=== PATIENT | male | born 1945 | race Caucasian/White ===

== ENCOUNTER 2016-03-16 09:30 | Emergency (ER) | payer BC, MEDICARE ==
[2016-03-16] MEDS ORDERED: SUBLIMAZE 100 MCG/2 ML IV ONE ×2 (09:48→11:59)
--- NOTE | 2016-03-16 09:53 | ERPHSYRPT ---
- History of Present Illness Time Seen by Provider: 03/16/16 09:34 Source: patient, family () Physician History: CC: abd pain Hx: Patient of Dr Olivia London states he got up to go to [place] Wednesday AM. He passed out. He has had some neck pain since. He then had vomiting and diarrhea on Wednesday. Took 2 NTG Wednesday due to a little chest pain and he thought he was having a heart attack. His advised him to go to the hospital which he declined. He was better yesterday. Today has no V/D but has right lower abd pain. It is severe and limits his ability to move comfortably. No chest pain today. No fever or chills. Pain sharp and severe. Normal urination without hematuria. Severity: severe Allergies/Adverse Reactions: No Known Drug Allergies Allergy (Verified 03/16/16 09:52) Home Medications: Amlodipine Besylate 5 mg [Norvasc 5 mg] 5 mg PO DAILY 03/16/16 [History] Aspirin 81 gm Chew [Baby Aspirin 81 mg Chew] 81 mg PO DAILY 03/16/16 [ History] Hydrochlorothiazide 12.5 mg PO DAILY 03/16/16 [History] Metoprolol Tartrate [Lopressor] 12.5 mg PO DAILY 03/16/16 [History] Nitroglycerin 0.4 mg Tablet [Nitrostat 0.4 MG Tablet] 0.4 mg SL UD PRN 07/25 [History] Omeprazole 20 MG [Prilosec 20 mg] 20 mg PO BID 03/16/16 [History] Prasugrel HCl [Effient] 10 mg PO DAILY 03/16/16 [History] Simvastatin [Zocor] 20 mg PO HS 03/16/16 [History] Hx Influenza Vaccination/Date Given: Yes (2012) Hx Pneumococcal Vaccination/Date Given: No - Review of Systems Constitutional: Malaise, No Fever, No Chills Eyes: No Symptoms Ears, Nose, & Throat: No Symptoms Respiratory: No Cough, No Dyspnea Cardiac: Chest Pain (2 days ago), Syncope Abdominal/Gastrointestinal: Abdominal Pain (today), Vomiting, Diarrhea Genitourinary Symptoms: No Dysuria Musculoskeletal: Back Pain Skin: No Rash Neurological: No Dizziness, No Focal Weakness, No Headache, No Parasthesia All Other Systems: Reviewed and Negative - Past Medical History Pertinent Past Medical History: Yes Neurological History: Migraines ENT History: No Pertinent History Cardiac History: High Cholesterol Respiratory History: No Pertinent History Endocrine Medical History: No Pertinent History Musculoskeletal History: Osteoarthritis GI Medical History: GERD History: No Pertinent History Psycho-Social History: No Pertinent History Male Reproductive Disorders: No Pertinent History - Past Surgical History Past Surgical History: Yes Neuro Surgical History: No Pertinent History Cardiac: No Pertinent History Respiratory: No Pertinent History Gastrointestinal: No Pertinent History Genitourinary: No Pertinent History Musculoskeletal: Orthopedic Surgery Male Surgical History: No Pertinent History Other Surgical History: jaw surgery, finger surgery , right arm plates and fx . lasic sonido eyes - Social History Smoking Status: Never smoker Exposure to second hand smoke: No Drug Use: none Patient Lives Alone: No - Nursing Vital Signs Nursing Vital Signs: Initial Vital Signs Temperature 98.0 F Temperature Source Oral Pulse Rate 68 Respiratory Rate 14 Blood Pressure [Right Arm] 138/95 Pain Intensity 4 - Physical Exam General Appearance: alert Eye Exam: PERRL/EOMI Ears, Nose, Throat Exam: normal ENT inspection, moist mucous membranes Neck Exam: normal inspection, other (mild posterior tenderness moreso on paraspinous muscles) Respiratory Exam: normal breath sounds Cardiovascular Exam: regular rate/rhythm, No murmur Gastrointestinal/Abdomen Exam: soft, tenderness (mild RLQ), No mass, No guarding Male Genitalia Exam: normal genitalia Back Exam: normal inspection, No vertebral tenderness Extremity Exam: normal inspection, normal range of motion Neurologic Exam: alert, oriented x 3, cooperative, sensation nml, No motor deficits Skin Exam: warm, dry, No rash - Course Nursing assessment & vital signs reviewed: Yes EKG Interpreted by Me: RATE (68), Sinus Rhythm, NORMAL AXIS, NORMAL INTERVALS ( QTc 392), NORMAL QRS - CT Exams cervical CT Interpretation: Tele-radiologist Report, No Fracture abd/pelvis CT Interpretation: Negative, Tele-radiologist Report, Normal Appendix Ordered Tests: Active Orders 24 hr Category Date Time Status Clean Catch Urine Specimen STAT Care 03/16/16 09:48 Active EKG-ER Only STAT Care 03/16/16 09:48 Active IV Insertion STAT Care 03/16/16 09:48 Active NPO (ED) STAT Care 03/16/16 09:48 Active ABDOMEN AND PELVIS W CONTRAST [CT] Stat Exams 03/16/16 09:48 Completed CERVICAL SPINE WO CONTRAST [CT] Stat Exams 03/16/16 09:49 Completed CBC W DIFF Stat Lab 03/16/16 10:01 Completed CMP Stat Lab 03/16/16 10:01 Completed LIPASE Stat Lab 03/16/16 10:01 Completed Lactic Acid Urgent Lab 03/16/16 09:58 Completed TROPONIN Stat Lab 03/16/16 10:01 Completed UA Stat Lab 03/16/16 10:45 Completed Medication Summary Generic Name Dose Route Start Last Admin Trade Name Freq PRN Reason Stop Dose Admin Sodium Chloride 1,000 mls @ 100 mls/hr 03/16/16 10:00 03/16/16 10:08 Sodium Chloride 0.9% 1000 Ml IV 04/15/16 09:59 100 mls/hr .Q10H RAVIN Administration Discontinued Medications Generic Name Dose Route Start Last Admin Trade Name Freq PRN Reason Stop Dose Admin Fentanyl Citrate 50 mcg 03/16/16 09:48 03/16/16 10:07 Sublimaze 100 Mcg/2 Ml IV 03/16/16 09:49 50 mcg STAT ONE Administration Fentanyl Citrate Confirm 03/16/16 10:03 Sublimaze 100 Mcg/2 Ml Administered 03/16/16 10:04 Dose 100 mcg .ROUTE .STK-MED ONE Fentanyl Citrate 50 mcg 03/16/16 11:59 03/16/16 12:03 Sublimaze 100 Mcg/2 Ml IV 03/16/16 12:00 50 mcg STAT ONE Administration Fentanyl Citrate Confirm 03/16/16 12:01 Sublimaze 100 Mcg/2 Ml Administered 03/16/16 12:02 Dose 100 mcg .ROUTE .STK-MED ONE Sodium Chloride Confirm 03/16/16 10:04 Sodium Chloride 0.9% 1000 Ml Administered 03/16/16 10:05 Dose 1,000 mls @ ud .ROUTE .STK-MED ONE Lab/Rad Data: Laboratory Result Diagrams 03/16/16 10:01 03/16/16 10:01 Laboratory Results 03/16/16 03/16/16 03/16/16 Range/Units 10:45 10:01 10:01 WBC 8.1 (4.0-10.5) K/mm3 RBC 4.92 (4.1-5.6) M/mm3 Hgb 14.2 (12.5-18.0) gm/dl Hct 42.8 (42-50) % MCV 87.0 (78-100) fl MCH 28.9 (26-32) pg MCHC 33.2 (32-36) g/dl RDW 13.5 (11.5-14.0) % Plt Count 193 (150-450) K/mm3 MPV 10.3 H (6-9.5) fl Gran % 65.8 (36.0-66.0) % Lymphocytes % 15.1 L (24.0-44.0) % Monocytes % 15.3 H (0.0-12.0) % Eosinophils % 3.6 (0.00-5.0) % Basophils % 0.2 (0.0-0.4) % Basophils # 0.02 (0-0.4) Sodium 136 (136-145) mEq/L Potassium 3.6 (3.5-5.1) mEq/L Chloride 101 (98-107) mEq/L Carbon Dioxide 24.1 (21-32) mEq/L Anion Gap 14.5 (5-15) MEQ/L BUN 15 (9-20) mg/dL Creatinine 1.06 (0.55-1.30) mg/dl Estimated GFR > 60 ML/MIN Glucose 105 (70-110) MG/DL Lactic Acid (0.4-2.0) Calcium 8.4 L (8.5-10.1) mg/dL Total Bilirubin 0.3 (0.2-1.0) mg/dL AST 17 (15-37) U/L ALT 23 (12-78) U/L Alkaline Phosphatase 71 (46-116) U/L Troponin I < 0.017 (0.000-0.056) ng/ml Serum Total Protein 6.9 (6.4-8.2) gm/dL Albumin 3.5 (3.4-5.0) g/dL Lipase 107 (73-393) U/L Ur Collection Type CCMS Urine Color YELLOW (YELLOW) Urine Appearance CLEAR (CLEAR) Urine pH 7.0 (5-6) Ur Specific Davis 1.015 (1.005-1.025) Urine Protein NEGATIVE (Negative) Urine Glucose (UA) NEGATIVE (NEGATIVE) mg/dL Urine Ketones NEGATIVE (NEGATIVE) Urine Nitrite NEGATIVE (NEGATIVE) Urine Bilirubin NEGATIVE (NEGATIVE) Urine Urobilinogen >=8.0 (0-1) mg/dL Urine WBC (Auto) NEGATIVE (NEGATIVE) Urine RBC (Auto) NEGATIVE (0-5) Flako/ul Specimen Received 03/16/2016 1050 03/16/16 Range/Units 09:58 WBC (4.0-10.5) K/mm3 RBC (4.1-5.6) M/mm3 Hgb (12.5-18.0) gm/dl Hct (42-50) % MCV (78-100) fl MCH (26-32) pg MCHC (32-36) g/dl RDW (11.5-14.0) % Plt Count (150-450) K/mm3 MPV (6-9.5) fl Gran % (36.0-66.0) % Lymphocytes % (24.0-44.0) % Monocytes % (0.0-12.0) % Eosinophils % (0.00-5.0) % Basophils % (0.0-0.4) % Basophils # (0-0.4) Sodium (136-145) mEq/L Potassium (3.5-5.1) mEq/L Chloride (98-107) mEq/L Carbon Dioxide (21-32) mEq/L Anion Gap (5-15) MEQ/L BUN (9-20) mg/dL Creatinine (0.55-1.30) mg/dl Estimated GFR ML/MIN Glucose (70-110) MG/DL Lactic Acid 1.1 (0.4-2.0) Calcium (8.5-10.1) mg/dL Total Bilirubin (0.2-1.0) mg/dL AST (15-37) U/L ALT (12-78) U/L Alkaline Phosphatase (46-116) U/L Troponin I (0.000-0.056) ng/ml Serum Total Protein (6.4-8.2) gm/dL Albumin (3.4-5.0) g/dL Lipase (73-393) U/L Ur Collection Type Urine Color (YELLOW) Urine Appearance (CLEAR) Urine pH (5-6) Ur Specific Davis (1.005-1.025) Urine Protein (Negative) Urine Glucose (UA) (NEGATIVE) mg/dL Urine Ketones (NEGATIVE) Urine Nitrite (NEGATIVE) Urine Bilirubin (NEGATIVE) Urine Urobilinogen (0-1) mg/dL Urine WBC (Auto) (NEGATIVE) Urine RBC (Auto) (0-5) Flako/ul Specimen Received - Progress Progress Note: 03/16/16 12:55 The patient is stable. He is thirsty and drinking sprite. No abd tenderness on exam. He has been given fentanyl. Etiology of pain uncertain. No chest pain since 2 days ago. Spoke to Dr London and arranged follow up appt Wed 10:30. Will release with instr. Counseled pt/family regarding: lab results, diagnosis, need for follow-up, rad results - Departure Time of Disposition: 12:57 Departure Disposition: Home Clinical Impression: Abdominal pain, right lateral Syncope Qualifiers: Syncope type: unspecified Qualified Code(s): R55 - Syncope and collapse Condition: Stable Critical Care Time: No Referrals: EJ LONDON [Primary Care Provider] - Instructions: Abdominal Pain-Adult, Fainting Additional Instructions: [place] diet. No driving until follow up. See Dr Olivia London Wednesday this week at 10:30 AM. REturn for problems or concerns. Rx norco. Rx zofran. Prescriptions: Hydrocodone Bit/Acetaminophen [Portal 5-325 Tablet] 1 each PO Q6H PRN PRN #10 tablet PRN Reason: Pain Ondansetron [Zofran Odt] 4 mg PO Q6HPRN PRN #10 tab.rapdis PRN Reason: Nausea/Vomiting
[2016-03-16 10:00] LABS: BASOPHIL % 0.2 % (0.0-0.4); Eosinophil % 3.6 % (0.00-5.0); Granulocytes % 65.8 % (36.0-66.0); Lymphocytes % 15.1 % (24.0-44.0); Mean Corpuscular Hemoglobin 28.9 pg (26-32); Mean Platelet Volume 10.3 fl (6-9.5); Monocytes % 15.3 % (0.0-12.0); Platelet Count 193 K/mm3 (150-450); Red Blood Count 4.92 M/mm3 (4.1-5.6); Red Cell Distribution Width 13.5 % (11.5-14.0); White Blood Count 8.1 K/mm3 (4.0-10.5)
[2016-03-16] MEDS ORDERED: Sodium Chloride 0.9% 1000 ML 1,000 ML IV SCH (10:00)
[2016-03-16] MEDS ORDERED: SUBLIMAZE 100 MCG/2 ML ONE ×2 (10:03→12:01)
[2016-03-16] MEDS ORDERED: Sodium Chloride 0.9% 1000 ML 1,000 ML ONE (10:04)
[2016-03-16 10:51] LABS: ALBUMIN 3.5 g/dL (3.4-5.0); ALKALINE PHOSPHATASE 71 U/L (46-116); ANION GAP 14.5 MEQ/L (5-15); BILIRUBIN,TOTAL 0.3 mg/dL (0.2-1.0); BLOOD UREA NITROGEN 15 mg/dL (9-20); CHLORIDE 101 mEq/L (98-107); Carbon Dioxide 24.1 mEq/L (21-32); Glucose 105 MG/DL (70-110); LIPASE 107 U/L (73-393); Potassium 3.6 mEq/L (3.5-5.1); SGOT/AST 17 U/L (15-37); SGPT/ALT 23 U/L (12-78); SODIUM 136 mEq/L (136-145); Total Protein 6.9 gm/dL (6.4-8.2)
[2016-03-16 10:54] LABS: TROPONIN < 0.017 ng/ml (0.000-0.056)
[2016-03-16 11:02] LABS: COMPLETE URINE MICROSCOPIC? NO; Collection Type CCMS
--- NOTE | 2016-03-16 12:18 | XRAY ---
Indication: Neck pain following syncope. Multiple contiguous axial images obtained through the cervical spine. Sagittal and coronal reformatted images obtained. Comparison: None Axial images demonstrates deformity of the right C1 transverse foramen either developmental versus old injury. No acute fracture, suspicious bony lesions, or canal stenosis. Minimal C4-C5 endplate and bilateral uncal spurring. Facets are symmetric. Sagittal and coronal reformatted images demonstrates lordotic straightening, positional versus paraspinal muscular spasm. C4-C5 and C6-C7 disc space narrowing. No acute compression fracture, subluxation, or jumped facet. Normal-appearing craniocervical junction. Visualized noncontrasted soft tissues including base of the brain and lung apices are unremarkable. Incidental old bilateral mandible angle fractures. Impression: Lordotic straightening, positional versus paraspinal spasm. Otherwise nonacute CT cervical spine with chronic features as detailed. CT DI 112.70
--- NOTE | 2016-03-16 12:26 | XRAY ---
Indication: Right lower quadrant pain, vomiting, and diarrhea. Syncope. Multiple contiguous axial images obtained through the abdomen and pelvis using 80 cc Isovue 370 contrast only. Comparison: April 08, 2013 Lung bases again demonstrates bibasilar dependent atelectasis. Heart is not enlarged. Stable small hiatal hernia. Noncontrasted stomach and bowel loops appear nonobstructed. Again scattered descending and sigmoid diverticulosis smaller than before. Normal air-filled appendix. No free fluid/air. Stable calcified splenic granulomas, bilateral renal cysts, and a few small nonpathologic left mid abdominal small mesenteric nodes. Remaining liver, gallbladder, pancreas, spleen, adrenal glands, kidneys, ureters, and bladder appear unremarkable. Again mild aortoiliac calcifications. No AAA or pathologic retroperitoneal lymphadenopathy. Osseous structures intact again with minimal degenerative changes throughout the spine and bilateral L5 spondylolysis without spondylolisthesis. Impression: 1. No new or acute intra-abdominal/pelvic abnormalities. 2. Stable small hiatal hernia, colonic diverticulosis, bilateral renal cysts, small nonpathologic mesenteric nodes, and bilateral L5 spondylolysis without spondylolisthesis. CT DI 23.68
[2016-03-16 13:10] VITALS: BP 158/72; PULSE 97; O2SAT 98
== END 2016-03-16 13:10 | disposition home or self-care (01) ==
LOC: ED 09:30
DX: R55 Syncope and collapse (principal); R10.9 Unspecified abdominal pain; R11.10 Vomiting, unspecified; R19.7 Diarrhea, unspecified; E78.00 Pure hypercholesterolemia, unspecified
CPT/HCPCS: 36000; 36415; 72125; 74177; 80053; 81002; 83605; 83690; 84484; 85025; 93005; 96360; 96361; 96374; 96376; 99284; 99285; J3010

== ENCOUNTER 2017-04-16 05:47 | Day surgery (SDC) | payer BC, MEDICARE ==
[2017-04-16] MEDS ORDERED: DIPRIVAN 200 MG/20 ML IV ONE (05:48)
[2017-04-16] MEDS ORDERED: Versed 2 MG/2 ML Injection IV ONE (05:48)
[2017-04-16] MEDS ORDERED: Lactated Ringers 1,000 ML IV SCH (06:00)
[2017-04-16] MEDS ORDERED: Lactated Ringers 1,000 ML IV ONE (06:03)
--- NOTE | 2017-04-16 08:02 | OP ---
SURGERY DATE/TIME: 04/16/2017 0727 PREOPERATIVE DIAGNOSIS: Screening exam. POSTOPERATIVE DIAGNOSIS: Small polyps in the ascending colon, scattered sigmoid diverticula, internal hemorrhoids. PROCEDURE: Colonoscopy with biopsy. SURGEON: Dr. Awan. ANESTHESIA: MAC. Medications given by anesthesia department. HISTORY: The patient is a 72 year-old white male patient presenting now for screening colonoscopy. He said he had a previous colonoscopy ten to twelve years ago which was normal. The patient was appraised of the risks of the procedure including the risk of perforation, phlebitis, untoward reaction to medication, bleeding and missed lesions. The patient verbalized his understanding and desired to have the procedure performed. DESCRIPTION OF PROCEDURE: The patient was given the medications by the anesthesia department. He had continuous pulse oximetry, ECG monitoring, intermittent blood pressure monitoring and tidal CO2 monitoring during the examination. He was placed in the left lateral decubitus position. A digital rectal examination was performed and revealed normal anal sphincter tone and no masses and normal prostate. The flexible Olympus pediatric colonoscope was used to intubate the rectum. A view of the colon was developed sequentially to the cecum. Upon insertion and withdrawal, it was noted small polyps in the ascending colon and these were biopsied and destroyed using cold biopsy technique. Upon insertion and withdrawal was also noted scattered sigmoid diverticula and internal hemorrhoids. No other mucosal lesions being encountered, the scope was removed from the patient who tolerated the procedure well and was sent back to OP recovery in good condition. The prep was noted to be fair.
[2017-04-16 10:11] VITALS: O2SAT 96
[2017-04-16 10:12] VITALS: BP 110/71; PULSE 58
== END 2017-04-16 09:05 | disposition home or self-care (01) ==
LOC: SDC 05:47
PROVIDERS: ATTEND Family Medicine
PROC: 0DBK8ZX Excision of Ascending Colon, Via Natural or Artificial Opening Endoscopic, Diagnostic (ICD-10-PCS; principal; 2017-04-16)
DX: Z12.11 Encounter for screening for malignant neoplasm of colon (principal); K63.5 Polyp of colon; K57.30 Diverticulosis of large intestine without perforation or abscess without bleeding; K64.8 Other hemorrhoids; I25.10 Atherosclerotic heart disease of native coronary artery without angina pectoris; K21.9 Gastro-esophageal reflux disease without esophagitis
CPT/HCPCS: 88305; 99100; J2250; J2704

== ENCOUNTER 2017-06-05 10:30 | Observation (INO) | payer BC, MEDICARE ==
[2017-06-05] MEDS ORDERED: NITRO-BID 2% UD PACKETS TOP ONE (10:54)
[2017-06-05] MEDS ORDERED: BABY ASPIRIN 81 MG CHEW PO ONE (10:54)
[2017-06-05 11:02] LABS: BASOPHIL % 0.3 % (0.0-0.4); Basophil (Absolute #) 0.02 (0-0.4); Eosinophil % 3.5 % (0.00-5.0); Eosinophil (Absolute #) 0.22 (0-0.5); Granulocyte Absolute (ANC) 3.82 (1.4-6.9); Granulocytes % 60.8 % (36.0-66.0); Hematocrit 40.3 % (42-50); Hemoglobin 13.9 gm/dl (12.5-18.0); Lymphocytes % 22.3 % (24.0-44.0); Mean Corpuscular Hgb Concent. 34.5 g/dl (32-36); Mean Platelet Volume 9.6 fl (6-9.5); Monocyte (Absolute #) 0.82 (0.0-1.3); Monocytes % 13.1 % (0.0-12.0); Platelet Count 189 K/mm3 (150-450); Red Blood Count 4.63 M/mm3 (4.1-5.6); Red Cell Distribution Width 13.1 % (11.5-14.0); White Blood Count 6.3 K/mm3 (4.0-10.5)
--- NOTE | 2017-06-05 11:06 | ERPHSYRPT ---
- History of Present Illness Time Seen by Provider: 06/05/17 10:47 Historian: patient Exam Limitations: clinical condition Patient Subjective Stated Complaint: pt reports chest pain that started last evening while picking up sticks, pt reports going ahead with mowing his yard. states he woke up today with chest heaviness to the center chest. 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 Triage Nursing Assessment: pt is aox3, pt appears anxious, pt is shivering in bed, pupils perrl, pt is afebrile, radial pulses strong and equal, heart sounds strong and regular. cap refill < 3 seconds. no edema appreciated. pt is pain free after nitro and aspirin per home use. Physician History: PATIENT WITH A HISTORY OF HYPERTENSION, CORONARY ARTERY DISEASE, MYOCARDIAL INFARCTION IN 2014, COMPLAINS OF INTERMITTENT CHEST PAIN SUBSTERNAL PRESSURE DISCOMFORT SINCE YESTERDAY. TOOK 2 BABY ASPIRIN AND NITROGLYCERIN 0.4MG X 3 DOSES WITH ALMOST COMPLETE RELIEF. STATES INITIAL PAIN SCALE 8/10, NOW IMPROVED TO 1/10. STATES CHEST PAIN RADIATES TO HIS JAW, DENIES DIAPHORESIS, PALPITATIONS, OR DYSPNEA. Timing/Duration: yesterday Activities at Onset: activity Quality: pressure Location: substernal Chest Pain Radiation: jaw Severity of Pain-Max: moderate Severity of Pain-Current: mild Modifying Factors: Improves With: nitroglycerin Associated Symptoms: denies symptoms Prior Chest Pain/Cardiac Workup: no prior cardiac workup, cardiac cath Nitro Today/Relief: 0.4 mg x 3, provided at home Aspirin Treatment Today: 81 mg x 2, provided at home Allergies/Adverse Reactions: No Known Drug Allergies Allergy (Verified 06/05/17 10:44) Home Medications: Amlodipine Besylate 5 mg [Norvasc 5 mg] 5 mg PO DAILY 03/16/16 [History] Aspirin 81 gm Chew [Baby Aspirin 81 mg Chew] 2 tab PO DAILY 03/16/16 [ History] Metoprolol Tartrate [Lopressor] 12.5 mg PO DAILY 03/16/16 [History] Nitroglycerin 0.4 mg Tablet [Nitrostat 0.4 MG Tablet] 0.4 mg SL UD PRN 07/25 [History] Omeprazole 20 MG [Prilosec 20 mg] 20 mg PO DAILY 03/16/16 [History] Losartan Potassium [Cozaar] 100 mg PO DAILY 04/06/17 [History] Hx Tetanus, Diphtheria Vaccination/Date Given: Yes Hx Influenza Vaccination/Date Given: No Hx Pneumococcal Vaccination/Date Given: No Immunizations Up to Date: Yes - Review of Systems Constitutional: No Fever, No Chills Eyes: No Symptoms Ears, Nose, & Throat: No Symptoms, Throat Swelling Respiratory: No Cough, No Dyspnea Cardiac: Chest Pain, No Edema, No Syncope Abdominal/Gastrointestinal: No Symptoms, No Abdominal Pain, No Nausea, No Vomiting, No Diarrhea Genitourinary Symptoms: No Symptoms, No Dysuria Musculoskeletal: No Symptoms, No Back Pain, No Neck Pain Skin: No Rash Neurological: No Dizziness, No Focal Weakness, No Sensory Changes Psychological: No Symptoms Endocrine: No Symptoms All Other Systems: Reviewed and Negative - Past Medical History Pertinent Past Medical History: Yes Neurological History: Migraines ENT History: No Pertinent History Cardiac History: Angina, High Cholesterol, Hypertension, Myocardial Infarction ( [place]) Respiratory History: No Pertinent History Endocrine Medical History: No Pertinent History Musculoskeletal History: Osteoarthritis GI Medical History: GERD History: No Pertinent History Psycho-Social History: No Pertinent History Male Reproductive Disorders: No Pertinent History - Past Surgical History Past Surgical History: Yes Neuro Surgical History: No Pertinent History Cardiac: Cardiac Catheterization Respiratory: No Pertinent History Gastrointestinal: No Pertinent History Genitourinary: No Pertinent History Musculoskeletal: Orthopedic Surgery Male Surgical History: No Pertinent History Other Surgical History: jaw surgery, finger surgery , right arm plates and fx . lasic sonido eyes - Social History Smoking Status: Never smoker Exposure to second hand smoke: No Drug Use: none Patient Lives Alone: No - Nursing Vital Signs Nursing Vital Signs: Initial Vital Signs Temperature 97.9 F 06/05/17 10:37 Pulse Rate 72 06/05/17 10:37 Respiratory Rate 20 06/05/17 10:37 Blood Pressure 142/84 06/05/17 10:37 O2 Sat by Pulse Oximetry 99 06/05/17 10:37 Pain Scale Pain Intensity 0 - Physical Exam General Appearance: no apparent distress, alert Eye Exam: PERRL/EOMI, eyes nml inspection Ears, Nose, Throat Exam: normal ENT inspection, moist mucous membranes Neck Exam: normal inspection, non-tender, supple, full range of motion Respiratory Exam: normal breath sounds, lungs clear, No respiratory distress Cardiovascular Exam: regular rate/rhythm, normal heart sounds Gastrointestinal/Abdomen Exam: soft, normal bowel sounds, No tenderness, No mass Back Exam: normal inspection, No CVA tenderness, No vertebral tenderness Extremity Exam: normal inspection, normal range of motion Neurologic Exam: alert, oriented x 3, cooperative, normal mood/affect, sensation nml, No motor deficits Skin Exam: normal color, warm, dry SpO2 Interpretation: normal SpO2: 99 Oxygen Delivery: Room Air - Course EKG Interpreted by Me: RATE, Sinus Rhythm, NORMAL AXIS - Radiology Exams Chest X-ray Interpretation: Interpreted by me (LEFT INFRAHILAR ATELECTASIS,) Ordered Tests: Active Orders 24 hr Category Date Time Status Bedrest with BRP/BSC ROUTINE Activity 06/05/17 12:38 Ordered Call Admit Doctor for Orders ROUTINE Care 06/05/17 12:38 Ordered Nailing Machine Operator Automatic STAT Care 06/05/17 10:55 Active Code Status Order ROUTINE Care 06/05/17 12:38 Ordered EKG-ER Only STAT Care 06/05/17 10:54 Active IV Care Q6H Care 06/05/17 12:38 Ordered IV Insertion STAT Care 06/05/17 10:54 Active Implement Chest Pain Pathway ROUTINE Care 06/05/17 12:38 Ordered Oxygen-ED Only NASAL CANNULA 2 lpm Care 06/05/17 10:[address] in Observation ROUTINE Care 06/05/17 12:38 Ordered Ethan Hose, Apply ROUTINE Care 06/05/17 12:38 Ordered Telemetry ROUTINE Care 06/05/17 12:38 Ordered Vital Signs Q4H Care 06/05/17 12:38 Ordered Weight,Daily 0600 Care 06/05/17 12:38 Ordered Cardiac Diet Diet 06/05/17 Dinner Ordered CHEST 1 VIEW (PORTABLE) Stat Exams 06/05/17 10:55 Taken CBC W DIFF Stat Lab 06/05/17 10:50 Completed CMP Stat Lab 06/05/17 10:50 Completed LIPID PROFILE AM.LAB Lab 06/06/17 04:00 Ordered MAGNESIUM Stat Lab 06/05/17 10:50 Completed PROTIME WITH INR Stat Lab 06/05/17 10:50 Completed TROPONIN Q3H Lab 06/05/17 10:50 Completed TROPONIN Q3H Lab 06/05/17 14:00 Ordered TROPONIN Q3H Lab 06/05/17 17:00 Ordered TROPONIN Q3H Lab 06/05/17 20:00 Ordered TROPONIN Q3H Lab 06/05/17 23:00 Ordered EKG Q8HX2,QAMX3,PRN RT 06/05/17 12:38 Ordered Pulse Oximetry Q4H RT 06/05/17 12:38 Ordered Transfer Order Routine Transfer 06/05/17 Ordered Medication Summary Generic Name Dose Route Start Last Admin Trade Name Freq PRN Reason Stop Dose Admin Sodium Chloride 1,000 mls @ 50 mls/hr 06/05/17 11:00 06/05/17 11:09 Sodium Chloride 0.9% 1000 Ml IV 07/05/17 10:59 50 mls/hr .Q20H RAVIN Administration Discontinued Medications Generic Name Dose Route Start Last Admin Trade Name Freq PRN Reason Stop Dose Admin Aspirin 162 mg 06/05/17 10:54 06/05/17 11:09 Baby Aspirin 81 Mg Chew PO 06/05/17 10:55 162 mg STAT ONE Administration Aspirin Confirm 06/05/17 11:07 Baby Aspirin 81 Mg Chew Administered 06/05/17 11:08 Dose 162 mg .ROUTE .STK-MED ONE Nitroglycerin 1 gm 06/05/17 10:54 06/05/17 11:12 Nitro-Bid 2% Ud Packets TOP 06/05/17 10:55 1 gm STAT ONE Administration Nitroglycerin Confirm 06/05/17 11:07 Nitro-Bid 2% Ud Packets Administered 06/05/17 11:08 Dose 1 gm .ROUTE .STK-MED ONE Lab/Rad Data: Laboratory Result Diagrams 06/05/17 10:50 06/05/17 10:50 Laboratory Results 06/05/17 06/05/17 06/05/17 Range/Units 10:50 10:50 10:50 WBC (4.0-10.5) K/mm3 RBC (4.1-5.6) M/mm3 Hgb (12.5-18.0) gm/dl Hct (42-50) % MCV (78-100) fl MCH (26-32) pg MCHC (32-36) g/dl RDW (11.5-14.0) % Plt Count (150-450) K/mm3 MPV (6-9.5) fl Gran % (36.0-66.0) % Eos # (Auto) (0-0.5) Absolute Lymphs (auto) (1.0-4.6) Absolute Monos (auto) (0.0-1.3) Lymphocytes % (24.0-44.0) % Monocytes % (0.0-12.0) % Eosinophils % (0.00-5.0) % Basophils % (0.0-0.4) % Absolute Granulocytes (1.4-6.9) Basophils # (0-0.4) PT 11.8 (8.83-12.87) SECONDS INR 1.06 (0.8-3.0) Sodium 139 (137-145) mmol/L Potassium 4.1 (3.5-5.1) mmol/L Chloride 103 (98-107) mmol/L Carbon Dioxide 23 (22-30) mmol/L Anion Gap 16.7 H (5-15) MEQ/L BUN 17 (9-20) mg/dL Creatinine 1.09 (0.66-1.25) mg/dL Estimated GFR > 60.0 ML/MIN Glucose 132 H (74-106) mg/dL Calcium 9.5 (8.4-10.2) mg/dL Magnesium 1.7 (1.6-2.3) mg/dL Total Bilirubin 0.40 (0.2-1.3) mg/dL AST 25 (17-59) U/L ALT 26 (0-50) U/L Alkaline Phosphatase 85 (38-126) U/L Troponin I < 0.012 (0.000-0.034) ng/mL Serum Total Protein 7.2 (6.3-8.2) g/dL Albumin 4.2 (3.5-5.0) g/dL 06/05/17 Range/Units 10:50 WBC 6.3 (4.0-10.5) K/mm3 RBC 4.63 (4.1-5.6) M/mm3 Hgb 13.9 (12.5-18.0) gm/dl Hct 40.3 L (42-50) % MCV 87.0 (78-100) fl MCH 30.0 (26-32) pg MCHC 34.5 (32-36) g/dl RDW 13.1 (11.5-14.0) % Plt Count 189 (150-450) K/mm3 MPV 9.6 H (6-9.5) fl Gran % 60.8 (36.0-66.0) % Eos # (Auto) 0.22 (0-0.5) Absolute Lymphs (auto) 1.40 (1.0-4.6) Absolute Monos (auto) 0.82 (0.0-1.3) Lymphocytes % 22.3 L (24.0-44.0) % Monocytes % 13.1 H (0.0-12.0) % Eosinophils % 3.5 (0.00-5.0) % Basophils % 0.3 (0.0-0.4) % Absolute Granulocytes 3.82 (1.4-6.9) Basophils # 0.02 (0-0.4) PT (8.83-12.87) SECONDS INR (0.8-3.0) Sodium (137-145) mmol/L Potassium (3.5-5.1) mmol/L Chloride (98-107) mmol/L Carbon Dioxide (22-30) mmol/L Anion Gap (5-15) MEQ/L BUN (9-20) mg/dL Creatinine (0.66-1.25) mg/dL Estimated GFR ML/MIN Glucose (74-106) mg/dL Calcium (8.4-10.2) mg/dL Magnesium (1.6-2.3) mg/dL Total Bilirubin (0.2-1.3) mg/dL AST (17-59) U/L ALT (0-50) U/L Alkaline Phosphatase (38-126) U/L Troponin I (0.000-0.034) ng/mL Serum Total Protein (6.3-8.2) g/dL Albumin (3.5-5.0) g/dL - Progress Progress Note: 06/05/17 11:06 ADMINISTERED NITROPASTE 1"ANTERIOR CHEST WALL, BABY ASA X 2 ORALLY Discussed with DrDa: Bri (DISCUSSED WITH DR Gerry LONDON AT 1210 FOR OBSERVATION) - Departure Time of Disposition: 12:43 Departure Disposition: Observation Clinical Impression: ACUTE CHEST PAIN Condition: Stable Critical Care Time: No Referrals: EJ LONDON [Primary Care Provider] -
[2017-06-05] MEDS ORDERED: BABY ASPIRIN 81 MG CHEW ONE (11:07)
[2017-06-05] MEDS ORDERED: NITRO-BID 2% UD PACKETS ONE (11:07)
[2017-06-05] MEDS: Sodium Chloride 0.9% 1000 ML 1,000 ML IV SCH (11:09)
[2017-06-05 11:17] LABS: INR 1.06 (0.8-3.0)
[2017-06-05 11:22] LABS: ALBUMIN 4.2 g/dL (3.5-5.0); ALKALINE PHOSPHATASE 85 U/L (38-126); ANION GAP 16.7 MEQ/L (5-15); BLOOD UREA NITROGEN 17 mg/dL (9-20); CHLORIDE 103 mmol/L (98-107); Calcium 9.5 mg/dL (8.4-10.2); Carbon Dioxide 23 mmol/L (22-30); Creatinine 1 1.09 mg/dL (0.66-1.25); Glucose 132 mg/dL (74-106); Potassium 4.1 mmol/L (3.5-5.1); SGOT/AST 25 U/L (17-59); SGPT/ALT 26 U/L (0-50); SODIUM 139 mmol/L (137-145); Total Protein 7.2 g/dL (6.3-8.2)
[2017-06-05] MEDS ORDERED: TYLENOL 325 MG PO PRN (12:38)
[2017-06-05] MEDS ORDERED: Senokot-S Tablet PO PRN (12:38)
[2017-06-05] MEDS ORDERED: Zofran 4 MG/2 ML VIAL IV PRN (12:38)
[2017-06-05] MEDS ORDERED: MILK OF MAGNESIA 30 ML PO PRN (12:38)
[2017-06-05] MEDS ORDERED: MAALOX ES 30 ML UNIT DOSE PO PRN (12:38)
[2017-06-05] MEDS ORDERED: Sodium Chloride 0.9% 500 ML 500 ML IV SCH (12:45)
--- NOTE | 2017-06-05 17:21 | XRAY ---
Indication: Chest pain. Comparison: July 03, 2015. Portable chest underinflated today. Query subtle left base infiltrate versus atelectasis. Remaining heart and lungs unremarkable. Bony thorax intact again with distal right clavicle resection.
[2017-06-05] MEDS: NITRO-BID 2% UD PACKETS TOP SCH ×2 (17:50→22:20)
[2017-06-05] MEDS: Nitrostat 0.4 MG Tablet SL PRN (21:11)
[2017-06-05] MEDS: Pepcid 20 MG PO SCH (21:50)
[2017-06-05] MEDS ORDERED: ZOCOR 20MG PO SCH (22:00)
[2017-06-05] MEDS ORDERED: LIPITOR 40MG PO SCH (22:00)
[2017-06-05] MEDS ORDERED: ENOXAPARIN SODIUM SQ SCH (22:00)
[2017-06-06 05:39] LABS: BASOPHIL % 0.3 % (0.0-0.4); Basophil (Absolute #) 0.02 (0-0.4); Eosinophil % 3.6 % (0.00-5.0); Eosinophil (Absolute #) 0.22 (0-0.5); Granulocytes % 62.2 % (36.0-66.0); Hematocrit 38.2 % (42-50); Hemoglobin 13.1 gm/dl (12.5-18.0); Lymphocyte (Absolute #) 1.18 (1.0-4.6); Lymphocytes % 19.3 % (24.0-44.0); Mean Corpuscular Hemoglobin 29.8 pg (26-32); Mean Corpuscular Hgb Concent. 34.3 g/dl (32-36); Mean Platelet Volume 9.7 fl (6-9.5); Monocyte (Absolute #) 0.89 (0.0-1.3); Monocytes % 14.6 % (0.0-12.0); Platelet Count 153 K/mm3 (150-450); Red Blood Count 4.39 M/mm3 (4.1-5.6); White Blood Count 6.1 K/mm3 (4.0-10.5)
[2017-06-06 05:55] LABS: ALBUMIN 3.8 g/dL (3.5-5.0); ALKALINE PHOSPHATASE 67 U/L (38-126); ANION GAP 11.9 MEQ/L (5-15); BLOOD UREA NITROGEN 16 mg/dL (9-20); CHLORIDE 103 mmol/L (98-107); Calcium 9.2 mg/dL (8.4-10.2); Carbon Dioxide 26 mmol/L (22-30); Creatinine 1 0.95 mg/dL (0.66-1.25); Glucose 103 mg/dL (74-106); Potassium 3.9 mmol/L (3.5-5.1); SGOT/AST 23 U/L (17-59); SGPT/ALT 23 U/L (0-50); SODIUM 137 mmol/L (137-145); Total Protein 6.6 g/dL (6.3-8.2)
[2017-06-06 06:03] LABS: NT PRO BNP 207 pg/mL (0-900)
[2017-06-06] MEDS: NITRO-BID 2% UD PACKETS TOP SCH (06:26)
[2017-06-06 07:26] LABS: Risk Ratio 4.4
[2017-06-06 07:31] VITALS: O2SAT 97
[2017-06-06] MEDS: Sodium Chloride 0.9% 1000 ML 1,000 ML IV SCH (07:40)
[2017-06-06] MEDS: Nitrostat 0.4 MG Tablet SL PRN ×2 (07:43→08:46)
--- NOTE | 2017-06-06 08:41 | PCM.HP ---
History of Present Illness - Chief Complaint Chief Complaint: chest pain Date: 06/06/17 History of Present Illness: is a 72 year old male. who has history of NSTEMI in 2015 and was treated with cardiac cath but per patient no stent was able to be deployed. he follows with Dr. Barr and per patient has not had any chest pain since that event until 2 days ago he was picking up sticks and began having a pressure in his chest and heaviness. He sat down and this resolved and he mowed the yard then it began to progressively worsen with pressure anytime he would do any activity and he had his take him to the ED where he was given nitro and the pain was relieved. Since then he has been having it with any exertion just walking to the bathroom gets a severe pressure and heaviness on the chest and numbness and heaviness in the left arm. he is also having associated shortness of breath now. htis hsa actually worsened as the night has gone on and worse this am. The nitro past was givening him a headache and he did not have it replaced but a second dose of 0.4 mg sublingual nitro this am has taken the pain back to a /10 from a 08/17 - Review of Systems Constitutional: No Fever, No Chills Eyes: No Symptoms Ears, Nose, & Throat: No Symptoms Respiratory: Short Of Breath, No Cough, No Orthopnea, No Wheezing Cardiac: Chest Pain, No Edema, No Syncope Abdominal/Gastrointestinal: No Abdominal Pain, No Nausea, No Vomiting, No Diarrhea Genitourinary Symptoms: No Dysuria Musculoskeletal: No Back Pain, No Neck Pain Skin: No Rash Neurological: No Dizziness, No Focal Weakness, No Sensory Changes Psychological: No Symptoms Endocrine: No Symptoms Hematologic/Lymphatic: No Symptoms Immunological/Allergic: No Symptoms Medications & Allergies Home Medications: Home Medication List Amlodipine Besylate 5 mg [Norvasc 5 mg] 5 mg PO DAILY 03/16/16 [History Confirmed 06/05/17] Aspirin 81 gm Chew [Baby Aspirin 81 mg Chew] 2 tab PO DAILY 03/16/16 [ History Confirmed 06/05/17] Metoprolol Tartrate [Lopressor] 50 mg PO DAILY 03/16/16 [History Confirmed 06/05] Nitroglycerin 0.4 mg Tablet [Nitrostat 0.4 MG Tablet] 0.4 mg SL UD PRN 07/25 [History Confirmed 06/05/17] Losartan Potassium [Cozaar] 100 mg PO DAILY 04/06/17 [History Confirmed 06/05/17 ] Hydrochlorothiazide 25 mg [hydroDIURIL 25 MG] 12.5 mg PO DAILY 06/05/17 [ History Confirmed 06/05/17] Lansoprazole [Lansoprazole] 30 mg PO DAILY 06/05/17 [History Confirmed 06/05/17] Rosuvastatin Calcium [Crestor] 10 mg PO DAILY 06/05/17 [History Confirmed ] Allergies/Adverse Reactions: Allergies Allergy/AdvReac Type Severity Reaction Status Date / Time No Known Drug Allergies Allergy Verified 06/05/17 10:44 - Past Medical History Past Medical History: Yes Neurological History: Migraines ENT History: No Pertinent History Cardiac History: Angina, High Cholesterol, Hypertension, Myocardial Infarction ( [place]) Respiratory History: No Pertinent History Endocrine Medical History: No Pertinent History Musculoskelatal History: Osteoarthritis GI Medical History: GERD History: No Pertinent History Pyscho-Social History: No Pertinent History Male Reproductive Disorders: No Pertinent History - Past Surgical History Past Surgical History: Yes Neuro Surgical History: No Pertinent History Cardiac History: Cardiac Catheterization Respiratory Surgery: No Pertinent History GI Surgical History: No Pertinent History Genitourinary Surgical Hx: No Pertinent History Musculskeletal Surgical Hx: Orthopedic Surgery Male Surgical History: No Pertinent History Other Surgical History: jaw surgery, finger surgery , right arm plates and fx . lasic sonido eyes - Social History Smoking Status: Never smoker Exposure to second hand smoke: No Alcohol: None Drug Use: none - Physical Exam Vital Signs: Vital Signs - 24 hr Temp Pulse Pulse Resp BP BP Pulse Ox 06/06/17 07:28 96.8 F 70 20 158/81 97 06/06/17 04:00 98.1 F 68 20 132/72 98 06/06/17 00:00 97.7 F 62 18 121/67 94 L 06/05/17 21:11 62 126/82 06/05/17 20:00 98.3 F 57 L 18 106/59 96 06/05/17 13:29 98.1 F 60 20 122/62 96 06/05/17 13:07 98.1 F 60 20 122/62 96 06/05/17 12:41 99 06/05/17 12:38 60 16 107/69 97 06/05/17 11:50 64 18 122/76 98 06/05/17 11:18 64 22 122/79 99 06/05/17 10:37 97.9 F 72 72 20 142/84 99 Oxygen-Last 24 hours O2 Percentage 2 Liters = 28% O2 Percentage 2 Liters = 28% General Appearance: no apparent distress, alert Neurologic Exam: alert, oriented x 3, cooperative, normal mood/affect, nml cerebellar function, nml station & gait, sensation nml, No motor deficits Eye Exam: PERRL/EOMI, eyes nml inspection Ears, Nose, Throat Exam: normal ENT inspection, TMs normal, pharynx normal, moist mucous membranes Neck Exam: normal inspection, non-tender, supple, full range of motion Respiratory Exam: normal breath sounds, lungs clear, No respiratory distress Cardiovascular Exam: regular rate/rhythm, normal heart sounds, normal peripheral pulses Gastrointestinal/Abdomen Exam: soft, normal bowel sounds, No tenderness, No mass Back Exam: normal inspection, normal range of motion, No CVA tenderness, No vertebral tenderness Extremity Exam: normal inspection, normal range of motion, pelvis stable Skin Exam: normal color, warm, dry, No rash Lymphatic Exam: No adenopathy Results - Labs Lab/Micro Results: Lab Results-Last 24 Hours 06/05/17 06/05/17 06/05/17 Range/Units 13:55 17:00 18:35 WBC (4.0-10.5) K/mm3 RBC (4.1-5.6) M/mm3 Hgb (12.5-18.0) gm/dl Hct (42-50) % MCV (78-100) fl MCH (26-32) pg MCHC (32-36) g/dl RDW (11.5-14.0) % Plt Count (150-450) K/mm3 MPV (6-9.5) fl Gran % (36.0-66.0) % Eos # (Auto) (0-0.5) Absolute Lymphs (auto) (1.0-4.6) Absolute Monos (auto) (0.0-1.3) Lymphocytes % (24.0-44.0) % Monocytes % (0.0-12.0) % Eosinophils % (0.00-5.0) % Basophils % (0.0-0.4) % Absolute Granulocytes (1.4-6.9) Basophils # (0-0.4) D-Dimer (215-500) ng/mL Sodium (137-145) mmol/L Potassium (3.5-5.1) mmol/L Chloride (98-107) mmol/L Carbon Dioxide (22-30) mmol/L Anion Gap (5-15) MEQ/L BUN (9-20) mg/dL Creatinine (0.66-1.25) mg/dL Estimated GFR ML/MIN Glucose (74-106) mg/dL Calcium (8.4-10.2) mg/dL Total Bilirubin (0.2-1.3) mg/dL AST (17-59) U/L ALT (0-50) U/L Alkaline Phosphatase (38-126) U/L Troponin I < 0.012 < 0.012 0.013 (0.000-0.034) ng/mL NT-Pro-B Natriuret Pep (0-900) pg/mL Serum Total Protein (6.3-8.2) g/dL Albumin (3.5-5.0) g/dL Triglycerides (30-150) mg/dL Cholesterol (50-200) mg/dL LDL Cholesterol (30-100) mg/dL HDL Cholesterol (40-60) mg/dL Heart Disease Risk Ratio 06/05/17 06/05/17 06/05/17 Range/Units 21:00 23:10 23:10 WBC (4.0-10.5) K/mm3 RBC (4.1-5.6) M/mm3 Hgb (12.5-18.0) gm/dl Hct (42-50) % MCV (78-100) fl MCH (26-32) pg MCHC (32-36) g/dl RDW (11.5-14.0) % Plt Count (150-450) K/mm3 MPV (6-9.5) fl Gran % (36.0-66.0) % Eos # (Auto) (0-0.5) Absolute Lymphs (auto) (1.0-4.6) Absolute Monos (auto) (0.0-1.3) Lymphocytes % (24.0-44.0) % Monocytes % (0.0-12.0) % Eosinophils % (0.00-5.0) % Basophils % (0.0-0.4) % Absolute Granulocytes (1.4-6.9) Basophils # (0-0.4) D-Dimer 271.64 (215-500) ng/mL Sodium (137-145) mmol/L Potassium (3.5-5.1) mmol/L Chloride (98-107) mmol/L Carbon Dioxide (22-30) mmol/L Anion Gap (5-15) MEQ/L BUN (9-20) mg/dL Creatinine (0.66-1.25) mg/dL Estimated GFR ML/MIN Glucose (74-106) mg/dL Calcium (8.4-10.2) mg/dL Total Bilirubin (0.2-1.3) mg/dL AST (17-59) U/L ALT (0-50) U/L Alkaline Phosphatase (38-126) U/L Troponin I 0.013 < 0.012 (0.000-0.034) ng/mL NT-Pro-B Natriuret Pep (0-900) pg/mL Serum Total Protein (6.3-8.2) g/dL Albumin (3.5-5.0) g/dL Triglycerides (30-150) mg/dL Cholesterol (50-200) mg/dL LDL Cholesterol (30-100) mg/dL HDL Cholesterol (40-60) mg/dL Heart Disease Risk Ratio 06/06/17 06/06/17 06/06/17 Range/Units 05:20 05:20 05:20 WBC 6.1 (4.0-10.5) K/mm3 RBC 4.39 (4.1-5.6) M/mm3 Hgb 13.1 (12.5-18.0) gm/dl Hct 38.2 L (42-50) % MCV 87.0 (78-100) fl MCH 29.8 (26-32) pg MCHC 34.3 (32-36) g/dl RDW 13.0 (11.5-14.0) % Plt Count 153 (150-450) K/mm3 MPV 9.7 H (6-9.5) fl Gran % 62.2 (36.0-66.0) % Eos # (Auto) 0.22 (0-0.5) Absolute Lymphs (auto) 1.18 (1.0-4.6) Absolute Monos (auto) 0.89 (0.0-1.3) Lymphocytes % 19.3 L (24.0-44.0) % Monocytes % 14.6 H (0.0-12.0) % Eosinophils % 3.6 (0.00-5.0) % Basophils % 0.3 (0.0-0.4) % Absolute Granulocytes 3.80 (1.4-6.9) Basophils # 0.02 (0-0.4) D-Dimer (215-500) ng/mL Sodium 137 (137-145) mmol/L Potassium 3.9 (3.5-5.1) mmol/L Chloride 103 (98-107) mmol/L Carbon Dioxide 26 (22-30) mmol/L Anion Gap 11.9 (5-15) MEQ/L BUN 16 (9-20) mg/dL Creatinine 0.95 (0.66-1.25) mg/dL Estimated GFR > 60.0 ML/MIN Glucose 103 (74-106) mg/dL Calcium 9.2 (8.4-10.2) mg/dL Total Bilirubin 0.30 (0.2-1.3) mg/dL AST 23 (17-59) U/L ALT 23 (0-50) U/L Alkaline Phosphatase 67 (38-126) U/L Troponin I (0.000-0.034) ng/mL NT-Pro-B Natriuret Pep 207 (0-900) pg/mL Serum Total Protein 6.6 (6.3-8.2) g/dL Albumin 3.8 (3.5-5.0) g/dL Triglycerides 175 H (30-150) mg/dL Cholesterol 151 (50-200) mg/dL LDL Cholesterol 77 (30-100) mg/dL HDL Cholesterol 34 L (40-60) mg/dL Heart Disease Risk Ratio 4.4 06/06/17 Range/Units 05:20 WBC (4.0-10.5) K/mm3 RBC (4.1-5.6) M/mm3 Hgb (12.5-18.0) gm/dl Hct (42-50) % MCV (78-100) fl MCH (26-32) pg MCHC (32-36) g/dl RDW (11.5-14.0) % Plt Count (150-450) K/mm3 MPV (6-9.5) fl Gran % (36.0-66.0) % Eos # (Auto) (0-0.5) Absolute Lymphs (auto) (1.0-4.6) Absolute Monos (auto) (0.0-1.3) Lymphocytes % (24.0-44.0) % Monocytes % (0.0-12.0) % Eosinophils % (0.00-5.0) % Basophils % (0.0-0.4) % Absolute Granulocytes (1.4-6.9) Basophils # (0-0.4) D-Dimer (215-500) ng/mL Sodium (137-145) mmol/L Potassium (3.5-5.1) mmol/L Chloride (98-107) mmol/L Carbon Dioxide (22-30) mmol/L Anion Gap (5-15) MEQ/L BUN (9-20) mg/dL Creatinine (0.66-1.25) mg/dL Estimated GFR ML/MIN Glucose (74-106) mg/dL Calcium (8.4-10.2) mg/dL Total Bilirubin (0.2-1.3) mg/dL AST (17-59) U/L ALT (0-50) U/L Alkaline Phosphatase (38-126) U/L Troponin I < 0.012 (0.000-0.034) ng/mL NT-Pro-B Natriuret Pep (0-900) pg/mL Serum Total Protein (6.3-8.2) g/dL Albumin (3.5-5.0) g/dL Triglycerides (30-150) mg/dL Cholesterol (50-200) mg/dL LDL Cholesterol (30-100) mg/dL HDL Cholesterol (40-60) mg/dL Heart Disease Risk Ratio - Other Procedures and Tests Respiratory Therapy 06/05/17 21:21 EKG STAT 06/05/17 21:23 EKG STAT 06/07/17 05:00 EKG ONCE Assessment/Plan (1) Unstable angina Current Visit: Yes Status: Acute Assessment & Plan: his enzymes have remained negative and ekg remained unchanged with the tele showing sinus rhythm in the 50 to 70 range all night. He however is having progressively increasing symptoms very characteristic of angina and strong concern for progressively worsening unstable angina yesterday he was given aspirin on admission and nitro that helped the pain he did not want the nitro past replaced due to the headache but has required several doses of sublingual nitro that have relieved the pain last night he was given a therapeutic dose of 1 mg/kg of lovenox and atorvastatin 40 mg he is on metoprolol and losartan chronically his bp has been controlled Discussed case with Dr. Caden Schwartz covering for Dr. Barr his printing estimator who kindly accepts the patient to [facility] for further diagnostic and therapeutic evaluation of this unstable angina. The patient is in agreement with the transfer for cardiac services and availability of bottle labeler should he need that he is given 500 mg of renexa and repeat ekg is being obtained last was at 06:30 prior to discharge (2) Coronary arteriosclerosis Current Visit: Yes Status: Acute (3) Essential hypertension Current Visit: Yes Status: Acute Code(s): I10 - ESSENTIAL (PRIMARY) HYPERTENSION
[2017-06-06] MEDS ORDERED: Ranexa 500 MG PO ONE (08:54)
[2017-06-06] MEDS: Pepcid 20 MG PO SCH (08:58)
[2017-06-06] MEDS ORDERED: NORVASC 5 MG PO SCH (10:00)
[2017-06-06] MEDS ORDERED: BABY ASPIRIN 81 MG CHEW PO SCH (10:00)
[2017-06-06] MEDS ORDERED: Cozaar 50 MG PO SCH (10:00)
[2017-06-06] MEDS ORDERED: Toprol-Xl 25MG Tablets PO SCH (10:00)
[2017-06-06] MEDS ORDERED: ECOTRIN 81 MG PO SCH (10:00)
[2017-06-06] MEDS ORDERED: Ecotrin 325 MG PO SCH (10:00)
[2017-06-06] MEDS ORDERED: hydroDIURIL 25 MG PO SCH (10:00)
[2017-06-06] MEDS ORDERED: Protonix 40MG Tablet PO SCH (10:00)
[2017-06-06 12:06] VITALS: BP 139/86; PULSE 69
[2017-06-06] MEDS ORDERED: ZOCOR 20MG PO SCH (22:00)
[2017-06-06] MEDS ORDERED: ENOXAPARIN SODIUM SQ SCH (22:00)
== END 2017-06-06 12:13 | disposition short-term general hospital (02) ==
LOC: ED 10:30 → MED SURG 12:55
PROVIDERS: ADMIT Family Medicine; ATTEND Family Medicine
DX: I20.0 Unstable angina (principal); I25.10 Atherosclerotic heart disease of native coronary artery without angina pectoris; I10 Essential (primary) hypertension
CPT/HCPCS: 36000; 36415; 71045; 80053; 80061; 83721; 83735; 83880; 84484; 85025; 85379; 85610; 93005; 93041; 93268; 96360; 99284; 99285; J1650; A9270-GY; G0378

== ENCOUNTER 2020-09-11 06:00 | Emergency (ER) | payer BC, MEDICARE ==
--- NOTE | 2020-09-11 06:52 | ERPHSYRPT ---
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 The patient was brought to [facility] ED by a coworker. Triage Nursing Assessment: The patient is alert and oriented, ambulatory. The patient is shaking and short of breath. As this nurse was was entering the room, the patient began vomiting. Physician History: Patient is a 75-year-old male presents to our ED for evaluation of shaking, chills and shortness of breath. 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 At approximately 4:40 AM patient began experiencing symptoms. Upon arrival to our ED patient was shaking hysterically. He complained of shortness of breath. Patient vomited. No chest pain. Patient states his body feels achy all over. Upon my evaluation symptoms had significantly improved. Patient was calm conversant well-appearing and in no acute distress. Symptoms are mild to moderate in intensity. No specific worsening or improving factors. Patient believes that this may have been potentially due to stress. Patient's last month. Patient has a cardiac history. 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 Patient has been taking all medications as prescribed. Patient is now comfortable. He voices no other complaints or concerns at this time. Severity: moderate Modifying Factors: Improves With: nothing Associated Symptoms: nausea, vomiting, shortness of breath, chills, other (Body aches) Allergies/Adverse Reactions: No Known Drug Allergies Allergy (Verified 09/11/20 06:32) Home Medications: Amlodipine Besylate 5 mg [Norvasc 5 mg] 5 mg PO DAILY 03/16/16 [History] Aspirin 81 gm Chew [Baby Aspirin 81 mg Chew] 1 tab PO DAILY 03/16/16 [H istory] Metoprolol Tartrate [Lopressor] 50 mg PO DAILY 03/16/16 [History] Nitroglycerin 0.4 mg Tablet [Nitrostat 0.4 MG Tablet] 0.4 mg SL UD PRN 03/16/16 [History] Hydrochlorothiazide 25 mg [hydroDIURIL 25 MG] 12.5 mg PO DAILY 06/05/17 [History] Lansoprazole 30 mg PO DAILY 06/05/17 [History] Rosuvastatin Calcium [Crestor] 10 mg PO DAILY 06/05/17 [History] Hx Tetanus, Diphtheria Vaccination/Date Given: Yes Hx Influenza Vaccination/Date Given: No Hx Pneumococcal Vaccination/Date Given: Yes Immunizations Up to Date: Yes Travel Risk - International Travel Have you traveled outside of the country in past 3 weeks: No - Coronavirus Screening Are you exhibiting any of the following symptoms?: Yes Symptoms: Shortness of Breath, Vomiting/Diarrhea, Headaches/Body Aches/Fatigue Close contact with a COVID-19 positive Pt in past 14-21 Days: No - Vaccine Status Have you recieved a Covid-19 vaccination: Yes [employer]: Moderna - Vaccination Dates Date of 2cond Vaccination (if applicable): 03/16/20 - Review of Systems Constitutional: No Symptoms, No Fever, No Chills Eyes: No Symptoms Ears, Nose, & Throat: No Symptoms Respiratory: No Symptoms, No Cough, No Dyspnea Cardiac: No Symptoms, No Chest Pain, No Edema, No Syncope Abdominal/Gastrointestinal: No Symptoms, No Abdominal Pain, No Nausea, No Vomiting, No Diarrhea Genitourinary Symptoms: No Symptoms, No Dysuria Musculoskeletal: No Symptoms, No Back Pain, No Neck Pain Skin: No Symptoms, No Rash Neurological: No Symptoms, No Dizziness, No Focal Weakness, No Sensory Changes Psychological: No Symptoms Endocrine: No Symptoms Hematologic/Lymphatic: No Symptoms Immunological/Allergic: No Symptoms All Other Systems: Reviewed and Negative - Past Medical History Pertinent Past Medical History: Yes Neurological History: Migraines ENT History: No Pertinent History Cardiac History: Angina, High Cholesterol, Hypertension, Myocardial Infarction ([place]) Respiratory History: No Pertinent History Endocrine Medical History: No Pertinent History Musculoskeletal History: Osteoarthritis GI Medical History: GERD History: No Pertinent History Psycho-Social History: No Pertinent History Male Reproductive Disorders: No Pertinent History - Past Surgical History Past Surgical History: Yes Neuro Surgical History: No Pertinent History Cardiac: Cardiac Catheterization Respiratory: No Pertinent History Gastrointestinal: No Pertinent History Genitourinary: No Pertinent History Musculoskeletal: Orthopedic Surgery Male Surgical History: No Pertinent History Other Surgical History: jaw surgery, finger surgery , right arm plates and fx . lasic sonido eyes, quadruple bypass in June 2017 - Social History Smoking Status: Never smoker Exposure to second hand smoke: No Drug Use: none Patient Lives Alone: Yes - Nursing Vital Signs Nursing Vital Signs: Initial Vital Signs Temperature 99 F 09/11/20 06:01 Pulse Rate 112 H 09/11/20 06:01 Respiratory Rate 22 09/11/20 06:01 Blood Pressure 123/89 09/11/20 06:01 O2 Sat by Pulse Oximetry 95 09/11/20 06:01 Pain Scale Pain Intensity 4 - Physical Exam General Appearance: no apparent distress, alert Eye Exam: PERRL/EOMI, eyes nml inspection Ears, Nose, Throat Exam: normal ENT inspection, TMs normal, pharynx normal, moist mucous membranes Neck Exam: normal inspection, non-tender, supple, full range of motion Respiratory Exam: normal breath sounds, lungs clear, No respiratory distress Cardiovascular Exam: regular rate/rhythm, normal heart sounds, normal peripheral pulses Gastrointestinal/Abdomen Exam: soft, normal bowel sounds, No tenderness, No mass Back Exam: normal inspection, normal range of motion, No CVA tenderness, No vertebral tenderness Extremity Exam: normal inspection, normal range of motion, pelvis stable, other (2+ pitting edema bilateral lower extremity.) Neurologic Exam: alert, oriented x 3, cooperative, normal mood/affect, sensation nml, No motor deficits Skin Exam: normal color, warm, dry, No rash Lymphatic Exam: No adenopathy SpO2 Interpretation: normal SpO2: 97 O2 Delivery: Room Air - Course Nursing assessment & vital signs reviewed: Yes EKG Interpreted by Me: RATE (102), Sinus Rhythm, NORMAL AXIS, NORMAL INTERVALS Ordered Tests: Active Orders 24 hr Category Date Time Status Organizational Effectiveness Director STAT Care 09/11/20 06:45 Active EKG-ER Only STAT Care 09/11/20 06:44 Active IV Insertion STAT Care 09/11/20 06:44 Active Pulse Oximetry (ED) STAT Care 09/11/20 06:44 Active CHEST 1 VIEW (PORTABLE) Stat Exams 09/11/20 07:01 Taken CBC W DIFF Stat Lab 09/11/20 06:30 Completed CK (IN-HOUSE) [CK-Creatinine Phosphokinase] Stat Lab 09/11/20 07:15 Ordered CMP Stat Lab 09/11/20 06:30 Received D-DIMER QUANTITATIVE Stat Lab 09/11/20 06:30 Received INFLUENZA A+B DARYL Routine Lab 09/11/20 07:13 Received NT PRO BNP Stat Lab 09/11/20 06:30 Received TROPONIN Q3H Lab 09/11/20 06:30 Received TROPONIN Q3H Lab 09/11/20 09:45 Ordered TROPONIN Q3H Lab 09/11/20 12:45 Ordered TROPONIN Q3H Lab 09/11/20 15:45 Ordered TROPONIN Q3H Lab 09/11/20 18:45 Ordered UA W/RFX UR CULTURE Stat Lab 09/11/20 07:10 Ordered Lab/Rad Data: Laboratory Result Diagrams 09/11/20 06:30 09/11/20 06:30 Laboratory Results 09/11/20 09/11/20 09/11/20 Range/Units 07:10 06:30 06:30 WBC (4.0-10.5) K/mm3 RBC (4.1-5.6) M/mm3 Hgb (12.5-18.0) gm/dl Hct (42-50) % MCV (78-100) fl MCH (26-32) pg MCHC (32-36) g/dl RDW (11.5-14.0) % Plt Count (150-450) K/mm3 MPV (7.5-11.0) fl Gran % (36.0-66.0) % Eos # (Auto) (0-0.5) Absolute Lymphs (auto) (1.0-4.6) Absolute Monos (auto) (0.0-1.3) Lymphocytes % (24.0-44.0) % Monocytes % (0.0-12.0) % Eosinophils % (0.00-5.0) % Basophils % (0.0-0.4) % Absolute Granulocytes (1.4-6.9) Basophils # (0-0.4) D-Dimer 2598 H* (215-500) ng/mL Sodium (137-145) mmol/L Potassium (3.5-5.1) mmol/L Chloride (98-107) mmol/L Carbon Dioxide (22-30) mmol/L Anion Gap (5-15) MEQ/L BUN (9-20) mg/dL Creatinine (0.66-1.25) mg/dL Estimated GFR ML/MIN Glucose (74-106) mg/dL Calcium (8.4-10.2) mg/dL Total Bilirubin (0.2-1.3) mg/dL AST (17-59) U/L ALT (0-50) U/L Alkaline Phosphatase (38-126) U/L Troponin I < 0.012 (0.000-0.034) ng/mL NT-Pro-B Natriuret Pep (0-900) pg/mL Serum Total Protein (6.3-8.2) g/dL Albumin (3.5-5.0) g/dL Urine Color YELLOW (YELLOW) Urine Appearance CLEAR (CLEAR) Urine pH 6.0 (5-6) Ur Specific Rick[place]all 1.018 (1.005-1.025) Urine Protein NEGATIVE (Negative) Urine Ketones NEGATIVE (NEGATIVE) Urine Blood NEGATIVE (0-5) Flako/ul Urine Nitrite NEGATIVE (NEGATIVE) Urine Bilirubin NEGATIVE (NEGATIVE) Urine Urobilinogen NEGATIVE (0-1) mg/dL Ur Leukocyte Esterase NEGATIVE (NEGATIVE) Urine WBC (Auto) NONE (0-5) /HPF Urine RBC (Auto) NONE (0-2) /HPF U Epithel Cells (Auto) NONE (FEW) /HPF Urine Bacteria (Auto) NONE (NEGATIVE) /HPF Urine Culture Reflexed NO (NO) Urine Glucose NEGATIVE (NEGATIVE) mg/dL 09/11/20 09/11/20 Range/Units 06:30 06:30 WBC 5.6 (4.0-10.5) K/mm3 RBC 4.19 (4.1-5.6) M/mm3 Hgb 12.6 (12.5-18.0) gm/dl Hct 38.0 L (42-50) % MCV 90.7 (78-100) fl MCH 30.1 (26-32) pg MCHC 33.2 (32-36) g/dl RDW 13.5 (11.5-14.0) % Plt Count 128 L (150-450) K/mm3 MPV 10.2 (7.5-11.0) fl Gran % 83.8 H (36.0-66.0) % Eos # (Auto) 0.30 (0-0.5) Absolute Lymphs (auto) 0.45 L (1.0-4.6) Absolute Monos (auto) 0.13 (0.0-1.3) Lymphocytes % 8.1 L (24.0-44.0) % Monocytes % 2.3 (0.0-12.0) % Eosinophils % 5.4 H (0.00-5.0) % Basophils % 0.4 (0.0-0.4) % Absolute Granulocytes 4.66 (1.4-6.9) Basophils # 0.02 (0-0.4) D-Dimer (215-500) ng/mL Sodium 139 (137-145) mmol/L Potassium 3.8 (3.5-5.1) mmol/L Chloride 101 (98-107) mmol/L Carbon Dioxide 26 (22-30) mmol/L Anion Gap 15.0 (5-15) MEQ/L BUN 18 (9-20) mg/dL Creatinine 1.12 (0.66-1.25) mg/dL Estimated GFR > 60.0 ML/MIN Glucose 112 H (74-106) mg/dL Calcium 9.5 (8.4-10.2) mg/dL Total Bilirubin 0.30 (0.2-1.3) mg/dL AST 35 (17-59) U/L ALT 23 (0-50) U/L Alkaline Phosphatase 82 (38-126) U/L Troponin I (0.000-0.034) ng/mL NT-Pro-B Natriuret Pep 154 (0-900) pg/mL Serum Total Protein 6.8 (6.3-8.2) g/dL Albumin 4.2 (3.5-5.0) g/dL Urine Color (YELLOW) Urine Appearance (CLEAR) Urine pH (5-6) Ur Specific [place]all (1.005-1.025) Urine Protein (Negative) Urine Ketones (NEGATIVE) Urine Blood (0-5) Flako/ul Urine Nitrite (NEGATIVE) Urine Bilirubin (NEGATIVE) Urine Urobilinogen (0-1) mg/dL Ur Leukocyte Esterase (NEGATIVE) Urine WBC (Auto) (0-5) /HPF Urine RBC (Auto) (0-2) /HPF U Epithel Cells (Auto) (FEW) /HPF Urine Bacteria (Auto) (NEGATIVE) /HPF Urine Culture Reflexed (NO) Urine Glucose (NEGATIVE) mg/dL - Progress Progress: improved Progress Note: Patient reassessed. He is now resting comfortably. Shaking has resolved. Patient still has residual myalgias. No chest pain no shortness of breath. Covid test and influenza ordered results pending. Labs pending Patient endorsed to Dr. Maria at approximately 7 AM for final disposition. 09/11/20 07:13 - Departure Clinical Impression: Myalgia Condition: Stable Critical Care Time: No Referrals: JASPAL FAM MD [Primary Care Provider] -
[2020-09-11 07:00] LABS: Absolute Neutrophil Ct (ANC) 4.66 (1.4-6.9); BASOPHIL % 0.4 % (0.0-0.4); Basophil (Absolute #) 0.02 (0-0.4); Eosinophil % 5.4 % (0.00-5.0); Hemoglobin 12.6 gm/dl (12.5-18.0); Lymphocyte (Absolute #) 0.45 (1.0-4.6); Lymphocytes % 8.1 % (24.0-44.0); Mean Cell Volume 90.7 fl (78-100); Mean Corpuscular Hemoglobin 30.1 pg (26-32); Mean Corpuscular Hgb Concent. 33.2 g/dl (32-36); Mean Platelet Volume 10.2 fl (7.5-11.0); Monocyte (Absolute #) 0.13 (0.0-1.3); Monocytes % 2.3 % (0.0-12.0); Neutrophil % 83.8 % (36.0-66.0); Platelet Count 128 K/mm3 (150-450); Red Blood Count 4.19 M/mm3 (4.1-5.6); Red Cell Distribution Width 13.5 % (11.5-14.0); White Blood Count 5.6 K/mm3 (4.0-10.5)
[2020-09-11 07:13] LABS: Appearance CLEAR (CLEAR); Bilirubin NEGATIVE (NEGATIVE); Blood NEGATIVE Ery/ul (0-5); Glucose NEGATIVE (NEGATIVE); Ketones NEGATIVE (NEGATIVE); Leukocyte Esterase NEGATIVE (NEGATIVE); Nitrite NEGATIVE (NEGATIVE); Protein,Urine Dip NEGATIVE (Negative); Specific Gravity 1.018 (1.005-1.025); Urobilinogen NEGATIVE mg/dL (0-1)
[2020-09-11 07:22] LABS: ALBUMIN 4.2 g/dL (3.5-5.0); ALKALINE PHOSPHATASE 82 U/L (38-126); BLOOD UREA NITROGEN 18 mg/dL (9-20); CHLORIDE 101 mmol/L (98-107); Calcium 9.5 mg/dL (8.4-10.2); Carbon Dioxide 26 mmol/L (22-30); Creatinine 1 1.12 mg/dL (0.66-1.25); EST GLOMERULAR FILTRATION RATE > 60.0 ML/MIN; Glucose 112 mg/dL (74-106); NT PRO BNP 154 pg/mL (0-900); Potassium 3.8 mmol/L (3.5-5.1); SGOT/AST 35 U/L (17-59); SGPT/ALT 23 U/L (0-50); SODIUM 139 mmol/L (137-145); Total Protein 6.8 g/dL (6.3-8.2)
[2020-09-11 07:46] LABS: INFLUENZA A NEGATIVE (NEGATIVE); INFLUENZA B NEGATIVE (NEGATIVE)
[2020-09-11 08:10] VITALS: O2SAT 98
--- NOTE | 2020-09-11 08:59 | XRAY ---
Exam: CT of the chest with IV contrast per PE protocol from 09/11/2020. CTDI: 15.27 mGy Comparison: AP upright portable chest film from 09/11/2020. Indication: Elevated d-dimer of 2598; elevated blood pressure; shaking, history of open heart surgery in 2018. Technique: Post-IV contrast axial images were obtained through the chest during automated injection of 100 cc of Isovue-370 contrast material using the PE protocol. Reconstructed coronal and sagittal images were created and reviewed. Findings: I see no filling defects within the main pulmonary artery segment, right or left main pulmonary arteries, or proximal branching intra-lobar arteries. Assessment of the distal pulmonary arterial branches is limited. I see no evidence of thoracic aortic dissection or aneurysm. Mild atherosclerotic vascular calcification is seen within the thoracic aorta. The heart size appears within normal limits. Coronary artery vascular calcification and changes consistent with prior CABG and midline sternotomy are noted. There is no pericardial effusion. I note a couple granulomatous calcifications in the subcarinal projection extending toward the right of midline. No abnormal mediastinal/perihilar lymphadenopathy is seen. No abnormal axillary lymphadenopathy is seen. I believe there is a small hiatal hernia present. I note some minor posterior compression atelectatic changes. No air space infiltrates or groundglass opacities are seen. There is no pneumothorax or pleural effusion. There is minimal pleural reaction within the major fissures of each lung. No abnormal soft tissue lung nodularity is seen. The visualized upper abdomen reveals multiple small calcified splenic granulomas. Vascular calcification is seen within the splenic artery. I cannot exclude a 9 mm calcified splenic artery aneurysm on axial image #244 of series 2. The adrenal glands appear unremarkable. There is an old ununited fracture of the middle third of the right clavicle. I see no acute fracture or aggressive bone lesion. Impression: 1. I see no definite clot within the main pulmonary artery trunk, right or left main pulmonary, or proximal branching intralobar arteries. Some of the distal pulmonary arterial branches are difficult to assess due to poor contrast and CT noise. No gross abnormality is seen. 2. No pulmonary infiltrates or other evidence of acute pulmonary disease is seen. 3. Small hiatal hernia, central old healed granulomatous disease, evidence of prior CABG, and an old ununited mid right clavicle fracture are seen.
[2020-09-11 09:05] VITALS: BP 115/64; PULSE 103
[2020-09-11 13:15] LABS: Slide Review 1 YES
--- NOTE | 2020-09-11 23:05 | XRAY ---
Exam: AP upright portable chest film from 09/11/2020. Comparison: Two-view chest from 08/24/2018. Indication: Shortness of breath; history of CABG in 2018. Findings: The transverse heart size is normal. Surgical clips overlie the left side of the mediastinum. There are also midline sternal wires. This is consistent with prior CABG. Vascular calcification within the aortic arch and mild tortuosity of the descending thoracic aorta are seen. There is average inflation of the lungs. There is mild elevation/eventration of the right hemidiaphragm with respect to the left hemidiaphragm. No air space infiltrates, vascular congestion, pneumothorax, or pleural fluid is seen. An old healed, ununited, displaced fracture of the middle third of the right clavicle is again seen. No acute osseous process is seen. Impression: 1. Status post CABG without evidence of acute cardiopulmonary disease. 2. Mild elevation/eventration of the right hemidiaphragm. 3. Old ununited displaced fracture of the middle third of the right clavicle.
== END 2020-09-11 09:22 | disposition home or self-care (01) ==
LOC: ED 06:00
DX: M79.10 Myalgia, unspecified site (principal); Z79.899 Other long term (current) drug therapy; I10 Essential (primary) hypertension; I25.2 Old myocardial infarction; E78.00 Pure hypercholesterolemia, unspecified
CPT/HCPCS: 36000; 36415; 71045; 71260; 80053; 81001; 82550; 83880; 84484; 85025; 85379; 87400; 93005; 93041; 94760; 99284; U0003

== ENCOUNTER 2024-04-26 05:54 | Day surgery (SDC) | payer MEDICARE ==
[2024-04-26] MEDS: Lactated Ringers 1,000 ML IV SCH (06:18)
[2024-04-26 06:49] LABS: Creatinine 1 0.99 mg/dL (0.66-1.25); EST GLOMERULAR FILTRATION RATE 78.5 ML/MIN; Potassium 3.4 mmol/L (3.5-5.1)
[2024-04-26] MEDS ORDERED: propofoL IV ONE ×3 (07:13→07:56)
[2024-04-26] MEDS ORDERED: Ephedrine Sulfate 50 MG/ML ONE (07:29)
[2024-04-26 08:32] VITALS: RESP 16; TEMP 97; O2SAT 98
[2024-04-26 08:38] VITALS: BP 113/54; PULSE 72
--- NOTE | 2024-04-27 12:12 | OP ---
SURGERY DATE/TIME: 04/26/2024 [id number] PROCEDURE PERFORMED: Colonoscopy. PREOPERATIVE DIAGNOSES: 1) Screening colonoscopy. 2) History of colon polyps. POSTOPERATIVE DIAGNOSIS: Multiple colon polyps. ANESTHESIA: MAC by Tyron Tiwari CRNA SURGEON: Tanner Thomas MD ESTIMATED BLOOD LOSS: Minimal. SPECIMENS: Hot forceps polypectomy x4 and hot snare polypectomy x1. DESCRIPTION OF PROCEDURE: After informed written consent was obtained, the patient was taken to the endoscopy suite. He underwent monitored anesthesia, and digital rectal exam showed normal sphincter tone and no internal lesions. The scope was inserted into the rectum and sequentially the entire colonic mucosa was traversed. The level of the cecum was reached and verified with direct visualization of the ileocecal valve. Upon withdrawal, there was immediately a polyp in the cecum which was grasped with forceps, cauterized, removed in its entirety and sent to Pathology. Upon further withdrawal, another polyp was encountered in the proximal transverse colon which was likewise removed with the hot forceps. In the descending colon, there was another small sessile polyp, again grasped with the forceps, cauterized and removed in its entirety. Upon further withdrawal into the sigmoid colon at the 25 cm scope level depth, there was a broad-based indistinct friable polypoid lesion which encompassed approximately 40% of the colon lumen. I was unable to get a snare around it as it was situated between 2 folds and I could not get around the base of it. Therefore, multiple hot forceps biopsies were taken to sample the lesion and to destroy as much of it as possible. There was still polypoid mucosal tissue present there following removal, but it seemed to be rather hemostatic, but again it was friable and bled easily. Approximately 4 cm distal to that, there was another fairly large pedunculated polyp which I placed a snare around, and it was retrieved and sent for pathology testing. There seemed to be some polypoid tissue still present at the base. Therefore, forceps was used to remove that tissue and appeared to be satisfactory. Distal to that, there were no lesions and no mucosal abnormalities. There were multiple diverticula mostly in the sigmoid colon. We will await pathology report but we will likely need to see General Surgery regarding definitive treatment of the polypoid lesion at 25 cm scope depth in the sigmoid colon to see if they are able to resect it either endoscopically or if he might need more definitive operative approach.
== END 2024-04-26 08:46 | disposition home or self-care (01) ==
LOC: SDC 05:54
PROVIDERS: ATTEND Family Medicine
DX: Z12.11 Encounter for screening for malignant neoplasm of colon (principal); Z09 Encounter for follow-up examination after completed treatment for conditions other than malignant neoplasm; Z86.0100 Personal history of colon polyps, unspecified; D12.0 Benign neoplasm of cecum; D12.4 Benign neoplasm of descending colon; D12.5 Benign neoplasm of sigmoid colon; D12.3 Benign neoplasm of transverse colon
CPT/HCPCS: 36415; 80048; 99100; J2704

== ENCOUNTER 2024-04-27 09:21 | Emergency (ER) | payer MEDICARE ==
[2024-04-27 09:34] VITALS: TEMP 97.3
--- NOTE | 2024-04-27 10:27 | ERPHSYRPT ---
- History of Present Illness Time Seen by Provider: 04/27/24 10:01 Historian: patient Exam Limitations: no limitations Patient Subjective Stated Complaint: had colonoscopy yesterday they removed polylps says hes in extreme pain this time. Triage Nursing Assessment: alert and oriented x3, gait is steady. patient has hypoactive lower quadrant bowel sounds, upperquadrant active bowel sounds. skin is dry patientstates did drink quite a bit of water last night Physician History: 79-year-old male with history of hypertension presented in the ER with complaint of lower abdominal pain since last night/this morning. Patient had a colonoscopy done with some polyp removal yesterday. Patient reports moderate to severe sharp pain lower abdomen across with some associated nausea but no vomiting. Denies any diarrhea/hematochezia. Pain is aggravated with palpation and movements. Allergies/Adverse Reactions: simvastatin Adverse Reaction (Verified 04/27/24 09:34) Home Medications: Amlodipine Besylate 5 mg [Norvasc 5 mg] 5 mg PO DAILY 03/16/16 [History] Metoprolol Tartrate [Lopressor] 50 mg PO DAILY 03/16/16 [History] Nitroglycerin 0.4 mg Tablet [Nitrostat 0.4 MG Tablet] 0.4 mg SL UD PRN 03/16/16 [History] Hydrochlorothiazide 25 mg [hydroDIURIL 25 MG] 12.5 mg PO DAILY 06/05/17 [History] Lansoprazole 30 mg PO DAILY 06/05/17 [History] Rosuvastatin Calcium [Crestor] 20 mg PO DAILY 06/05/17 [History] Pantoprazole 40 mg [Protonix 40 mg IV] 40 mg PO DAILY 02/16/24 [History] Tamsulosin HCl 0.4 mg [Flomax 0.4 MG] 0.4 mg PO DAILY 02/16/24 [History] Hx Tetanus, Diphtheria Vaccination/Date Given: Yes Hx Influenza Vaccination/Date Given: No Hx Pneumococcal Vaccination/Date Given: (was going to get today) Immunizations Up to Date: Yes Travel Risk - International Travel Have you traveled outside of the country in past 3 weeks: No - Emerging Infectious Disease Are you exhibiting symptoms associated with any current EIDs: Yes Symptoms: Abdominal Pain - Review of Systems Constitutional: No Symptoms Ears, Nose, & Throat: No Symptoms Respiratory: No Symptoms Cardiac: No Symptoms Abdominal/Gastrointestinal: Abdominal Pain, Nausea Genitourinary Symptoms: No Symptoms Musculoskeletal: Arthralgias Skin: No Symptoms Neurological: No Symptoms Psychological: No Symptoms Endocrine: No Symptoms Hematologic/Lymphatic: No Symptoms - Past Medical History Pertinent Past Medical History: Yes Neurological History: Migraines ENT History: No Pertinent History Cardiac History: Angina, High Cholesterol, Hypertension, Myocardial Infarction ([place]) Respiratory History: No Pertinent History Endocrine Medical History: No Pertinent History Musculoskeletal History: Osteoarthritis GI Medical History: GERD History: No Pertinent History Psycho-Social History: No Pertinent History Male Reproductive Disorders: Prostate Cancer - Past Surgical History Past Surgical History: Yes Neuro Surgical History: No Pertinent History Cardiac: CABG, Cardiac Catheterization Respiratory: No Pertinent History Gastrointestinal: Hernia Repair Genitourinary: No Pertinent History Musculoskeletal: Orthopedic Surgery Male Surgical History: No Pertinent History Other Surgical History: jaw surgery, left finger surgery with screw , right arm plates and fx . lasic sonido eyes, quadruple bypass in June 2017, [facility] knee replacement - Social History Smoking Status: Never smoker Drug Use: none - Social Determinants of Health Will the patient participate in the screening: Yes Do you worry about a steady place to live?: No Do you have any problems with any of the following?: No known problems In the past 12 months,have you had to go without utilities?: No Transportation Issues: No Has anyone in your support network made you feel unsafe?: No Have you or anyone in your house had to go w/o enough food: No - Nursing Vital Signs Nursing Vital Signs: Initial Vital Signs Temperature 97.3 F 04/27/24 09:24 Pulse Rate 61 04/27/24 09:24 Respiratory Rate 18 04/27/24 09:24 Blood Pressure 129/70 04/27/24 09:24 O2 Sat by Pulse Oximetry 99 04/27/24 09:24 Pain Scale Pain Intensity 5 - Physical Exam General Appearance: no apparent distress, alert Eye Exam: PERRL/EOMI Ears, Nose, Throat Exam: normal ENT inspection Neck Exam: normal inspection, full range of motion Respiratory Exam: normal breath sounds, lungs clear Cardiovascular Exam: regular rate/rhythm, normal heart sounds Gastrointestinal/Abdomen Exam: soft, tenderness (Lower abdomen), No normal bowel sounds (Hypoactive) Back Exam: normal range of motion Extremity Exam: normal inspection, normal range of motion Neurologic Exam: alert, oriented x 3, cooperative Skin Exam: normal color SpO2 Interpretation: normal SpO2: 99 O2 Delivery: Room Air Ordered Tests: Active Orders 24 hr Category Date Time Status IV Insertion STAT Care 04/27/24 10:02 Active NPO (ED) STAT Care 04/27/24 10:02 Active ABDOMEN AND PELVIS W/0 CONTRAS [CT] Stat Exams 04/27/24 10:02 Completed CBC W DIFF Stat Lab 04/27/24 10:31 Completed CMP Stat Lab 04/27/24 10:31 Completed LIPASE Stat Lab 04/27/24 10:31 Completed UA W/RFX UR CULTURE Stat Lab 04/27/24 10:50 Completed Medication Summary Discontinued Medications Generic Name Dose Route Start Last Admin Trade Name Freq PRN Reason Stop Dose Admin Sodium Chloride 500 mls @ 500 mls/hr 04/27/24 10:02 04/27/24 11:37 Sodium Chloride 0.9% 500 Ml IV 04/27/24 11:01 Infused .Q1H ONE Infusion Sodium Chloride Confirm 04/27/24 10:33 Sodium Chloride 0.9% 500 Ml Administered 04/27/24 10:34 Dose 500 mls @ ud IV .STK-MED ONE Lab/Rad Data: Laboratory Result Diagrams 04/27/24 10:31 04/27/24 10:31 Laboratory Results 04/27/24 04/27/24 04/27/24 Range/Units 10:50 10:31 10:31 WBC 7.9 (4.23-9.07) x10^3/uL RBC 4.17 L (4.63-6.08) x10^6/uL Hgb 12.1 L (13.7-17.5) g/dL Hct 35.2 L (40.1-51.0) % MCV 84.4 (79.0-92.2) fL MCH 29.0 (25.7-32.2) pg MCHC 34.4 (32.3-36.5) g/dL RDW 12.7 (11.6-14.4) % Plt Count 139 L (163-337) x10^3/uL MPV 9.4 (9.4-12.4) fL Gran % 79.5 H (34.0-67.9) % Immature Gran % (Auto) 0.4 (0.001-0.429) % Nucleat RBC Rel Count 0.0 (0.00-0.2) % Eos # (Auto) 0.07 (0.04-0.54) x10^3/uL Immature Gran # (Auto) 0.03 (0.001-0.031) x10^3u/L Absolute Lymphs (auto) 0.45 L (1.32-3.57) x10^3/uL Absolute Monos (auto) 1.04 H (0.30-0.82) x10^3/uL Absolute Nucleated RBC 0.00 (0.00-0.012) x10^3u/L Lymphocytes % 5.7 L (21.8-53.1) % Monocytes % 13.2 H (5.3-12.2) % Eosinophils % 0.9 (0.8-7.0) % Basophils % 0.3 (0.2-1.2) % Absolute Granulocytes 6.26 H (1.78-5.38) x10^3/uL Basophils # 0.02 (0.01-0.08) x10^3/uL Sodium 130 L (135-145) mmol/L Potassium 3.9 (3.5-5.1) mmol/L Chloride 96 L (98-107) mmol/L Carbon Dioxide 25 (22-30) mmol/L Anion Gap 12.6 (5-15) MEQ/L BUN 14 (9-20) mg/dL Creatinine 1.04 (0.66-1.25) mg/dL Estimated GFR 74.0 ML/MIN Glucose 121 H (74-106) mg/dL Calcium 8.8 (8.4-10.2) mg/dL Total Bilirubin 0.90 (0.2-1.3) mg/dL AST 27 (17-59) U/L ALT 20 (0-50) U/L Alkaline Phosphatase 51 (38-126) U/L Serum Total Protein 6.8 (6.3-8.2) g/dL Albumin 4.0 (3.5-5.0) g/dL Lipase 40 (23-300) U/L Urine Color Yellow (Yellow) Urine Appearance Clear (Clear) Urine pH 7.5 (4.6-8.0) Ur Specific [employer] 1.015 (1.005-1.030) Urine Protein Negative (Negative) Urine Glucose (UA) Negative (Negative) mg/dL Urine Ketones Negative (Negative) Urine Blood Negative (Negative) Urine Nitrite Negative (Negative) Urine Bilirubin Negative (Negative) Urine Urobilinogen 0.2 (0.2) mg/dL Ur Leukocyte Esterase Negative (Negative) U Hyaline Cast (Auto) NONE SEEN (0-2) /LPF Urine Microscopic RBC 0-2 (0-5) /HPF Urine Microscopic WBC 0-2 (0-5) /HPF Ur Epithelial Cells None Seen (None Seen) /HPF Urine Bacteria None Seen (None Seen) /HPF Urine Culture Reflexed NO (NO) - Progress Progress: improved Progress Note: 04/27/24 11:44 79-year-old with history of CAD, hypertension is evaluated in the ER for lower abdominal pain after he had a colonoscopy yesterday with some polyp resections. Patient has diffuse lower abdominal tenderness. Mildly hypoactive bowel s ounds. He is offered pain medication which she declined. Patient has no hematochezia. Has normal white count and fairly unremarkable chemistries except for minimally low sodium of 130 with a baseline around 133 which I believe is secondary to increased free water intake in the colonoscopy prep. I have obtained CT abdomen pelvis which is negative for any acute findings suggesting perforation, include inflammation. Patient is hemodynamically stable. I do not think patient needs any further workup and he is thoroughly counseled, recommended taking Tylenol and the pain could be secondary to polyp resections. Discussed signs symptoms of worsening needing return to ER which she seems understanding. Stable for discharge. Complexity of problem addressed: Moderate acute Amount of data reviewed/analyzed: Moderate. Risk of complication morbidity/mortality associated with current condition. Mo aida Counseled pt/family regarding: lab results, diagnosis, need for follow-up, rad results Medical Desision Making - Diagnostic Testing Diagnostic test were ordered, analyzed, and reviewed by me: Yes Radiological Interpretation: Reviewed by me - Departure Departure Disposition: Home Clinical Impression: Lower abdominal pain, Status post colonoscopy with polypectomy Condition: Stable Critical Care Time: No Referrals: JASPAL FAM MD [Primary Care Provider] - Follow up with PCP 1 day Instructions: Severe Abdominal Pain, Adult (DC), Colonoscopy - Discharge instructions Additional Instructions: Take Tylenol as needed. Follow-up with your primary care for reevaluation. Return to ER for intractable pain/bleeding per rectal, intractable nausea vomiting and if develop fever chills etc.
[2024-04-27 10:33] LABS: Absolute Neutrophil Ct (ANC) 6.26 x10^3/uL (1.78-5.38); BASOPHIL % 0.3 % (0.2-1.2); Basophil (Absolute #) 0.02 x10^3/uL (0.01-0.08); Eosinophil % 0.9 % (0.8-7.0); Eosinophil (Absolute #) 0.07 x10^3/uL (0.04-0.54); Hematocrit 35.2 % (40.1-51.0); Hemoglobin 12.1 g/dL (13.7-17.5); IMMATURE GRAN # 0.03 x10^3u/L (0.001-0.031); IMMATURE GRAN % 0.4 % (0.001-0.429); Lymphocyte (Absolute #) 0.45 x10^3/uL (1.32-3.57); Lymphocytes % 5.7 % (21.8-53.1); Mean Cell Volume 84.4 fL (79.0-92.2); Mean Corpuscular Hgb Concent. 34.4 g/dL (32.3-36.5); Mean Platelet Volume 9.4 fL (9.4-12.4); Monocyte (Absolute #) 1.04 x10^3/uL (0.30-0.82); Monocytes % 13.2 % (5.3-12.2); Neutrophil % 79.5 % (34.0-67.9); Platelet Count 139 x10^3/uL (163-337); Red Blood Count 4.17 x10^6/uL (4.63-6.08); Red Cell Distribution Width 12.7 % (11.6-14.4); White Blood Count 7.9 x10^3/uL (4.23-9.07)
[2024-04-27] MEDS ORDERED: Sodium Chloride 0.9% 500 ML 500 ML IV ONE (10:33)
[2024-04-27] MEDS: Sodium Chloride 0.9% 500 ML 500 ML IV ONE (10:35)
[2024-04-27 10:47] LABS: ANION GAP 12.6 MEQ/L (5-15); BILIRUBIN,TOTAL 0.9 mg/dL (0.2-1.3); Calcium 8.8 mg/dL (8.4-10.2); Creatinine 1 1.04 mg/dL (0.66-1.25); Potassium 3.9 mmol/L (3.5-5.1); Total Protein 6.8 g/dL (6.3-8.2)
[2024-04-27 11:10] VITALS: BP 112/65; PULSE 55; RESP 12
[2024-04-27 11:18] LABS: Appearance Clear (Clear); Bacteria None Seen /HPF (None Seen); Bilirubin Negative (Negative); Blood Negative (Negative); Epithelial Cells None Seen /HPF (None Seen); Glucose, Urine Negative (Negative); Hyaline Casts NONE SEEN /LPF (0-2); Ketones Negative (Negative); Leukocyte Esterase Negative (Negative); Nitrite Negative (Negative); Ph 7.5 (4.6-8.0); Protein,Urine Dip Negative (Negative); RBC 0-2 /HPF (0-5); Specific Gravity 1.015 (1.005-1.030); Urobilinogen 0.2 mg/dL (0.2); WBC 0-2 /HPF (0-5)
--- NOTE | 2024-04-27 11:18 | XRAY ---
Indication: Lower abdominal pain. Status post colonoscopy. Multiple contiguous axial images obtained through the abdomen and pelvis without contrast. Comparison: March 27, 2021. Lung bases clear infiltrate or effusion. Heart borderline enlarged. Stable small hiatal hernia. Stomach mildly distended with food/fluid. Noncontrasted stomach and bowel loops nonobstructed again with normal appendix. There remains scattered descending/sigmoid diverticulosis. Small left mid renal cyst, and tiny hepatic/splenic calcified granulomas. New prostate radiation seeds. No free fluid/air. Remaining liver, gallbladder, pancreas, spleen, adrenal glands, kidneys, ureters, and bladder are unremarkable for noncontrast exam. There remains mild scattered aortoiliac calcifications without AAA. 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 Impression: Again chronic findings including hiatal hernia, colonic diverticulosis, left renal cyst, arteriosclerotic disease, chronic bony findings, and old granulomatous disease. No new/acute findings on this noncontrast exam.
[2024-04-27 11:52] VITALS: O2SAT 99
[2024-04-27 14:37] LABS: Slide Review 1 YES
== END 2024-04-27 12:03 | disposition home or self-care (01) ==
LOC: ED 09:21
DX: R10.30 Lower abdominal pain, unspecified (principal); Z98.890 Other specified postprocedural states; R11.0 Nausea; E78.5 Hyperlipidemia, unspecified; I10 Essential (primary) hypertension; Z79.899 Other long term (current) drug therapy
CPT/HCPCS: 36415; 74176; 80053; 81001; 83690; 85025; 96360; 99284